=== PATIENT | female | born 1940 | race Caucasian/White ===

== ENCOUNTER 2017-01-11 10:23 | Outpatient (CLI) | payer OTHER, MEDICAID ==
[~2017-01-11 10:23] MED LIST: ACETAMINOPHEN 325 MG TAB PO ONE; ACETAMINOPHEN 325 MG TAB PO PRN; DEXAMETHASONE 10 MG/ML VIAL IVP PRN; HYDROCORTISONE 100 MG/2 ML VIAL IVP PRN; MEPERIDINE 25 MG/ML SYR IVP PRN; NS 1,000 ML IV PRN; NS 500 ML IV PRN; riTUXimab 1,000 MG in NS 900 ML IV ONE
[2017-01-11 12:27] VITALS: RESP 18
[2017-01-11 15:42] VITALS: TEMP 98.7
[2017-01-11 15:45] VITALS: BP 128/51; PULSE 91; O2SAT 97
== END 2017-01-11 16:44 | disposition home or self-care (01) ==
LOC: F1NOP 10:23
PROVIDERS: ATTEND Internal Medicine Rheumatology
PROC: 3E033GC Introduction of Other Therapeutic Substance into Peripheral Vein, Percutaneous Approach (ICD-10-PCS; principal; 2017-01-11)
DX: M06.9 Rheumatoid arthritis, unspecified (principal)
CPT/HCPCS: 96413; 96415; J9310

== ENCOUNTER 2017-01-25 10:46 | Outpatient (CLI) | payer OTHER, MEDICAID ==
[2017-01-25 13:14] VITALS: RESP 18
[2017-01-25] MEDS ORDERED: ACETAMINOPHEN 325 MG TAB PO ONE (13:30)
[2017-01-25 16:42] VITALS: BP 116/71; PULSE 87; TEMP 97.8; O2SAT 97
== END 2017-01-25 17:00 | disposition home or self-care (01) ==
LOC: F1NOP 10:46
PROVIDERS: ATTEND Internal Medicine Rheumatology
PROC: 3E033GC Introduction of Other Therapeutic Substance into Peripheral Vein, Percutaneous Approach (ICD-10-PCS; principal; 2017-01-25)
DX: M05.89 Other rheumatoid arthritis with rheumatoid factor of multiple sites (principal)
CPT/HCPCS: 96413; 96415; J9310

== ENCOUNTER 2018-08-21 13:07 | Outpatient (CLI) | payer OTHER, MEDICAID | END 2018-08-21 18:00 | disposition home or self-care (01) | LOC: F1NOP 13:07 ==

== ENCOUNTER → 2018-09-04 | Outpatient (CLI) | payer OTHER, MEDICAID | LOC: F1NOP 13:02 ==